=== PATIENT | female | born 1975 | race Caucasian/White ===

== ENCOUNTER 2018-01-29 15:03 | Emergency (ER) | payer OTHER ==
[~2018-01-29] VITALS: Ht 152.4 cm; Wt 81.6 kg
[2018-01-29 15:20] VITALS: BP_SYST 131
[2018-01-29] MEDS ORDERED: IBUPROFEN 600 MG TABLET PO ONE (16:45)
[2018-01-29 16:58] VITALS: BP_SYST 131
== END 2018-01-29 16:58 | disposition home or self-care (01) ==
LOC: SED 15:03
DX: S83.92XA Sprain of unspecified site of left knee, initial encounter (principal); Z88.1 Allergy status to other antibiotic agents; Z88.6 Allergy status to analgesic agent; Z91.040 Latex allergy status; W50.0XXA Accidental hit or strike by another person, initial encounter; Y93.66 Activity, soccer; Y92.89 Other specified places as the place of occurrence of the external cause; Y99.8 Other external cause status
CPT/HCPCS: 73564; 99284